=== PATIENT | male | born 1940 | race Caucasian/White ===

== ENCOUNTER 2020-06-02 08:00 | Day surgery (SDC) | payer MEDICARE ==
[2020-06-01 11:44] VITALS: BMI 30.4
[2020-06-02 08:40] LABS: Hemoglobin 13.7 g/dL (14.0-18.0)
[2020-06-02] MEDS ORDERED: AFRIN NASAL MIST 15 ML BOT ONE ×2 (08:42→08:55)
[2020-06-02] MEDS ORDERED: Lidocaine 1% w/Epinephrine 1:100K 20 ML VIAL ONE (08:55)
[2020-06-02] MEDS ORDERED: Ondansetron PF 4 MG/2 ML Vial ONE ×2 (08:56→13:18)
[2020-06-02] MEDS ORDERED: Dexamethasone 20 MG/5 ML VIAL ONE (08:56)
[2020-06-02] MEDS ORDERED: PROPOFOL 200 MG/20 ML VIAL ONE (08:56)
[2020-06-02] MEDS ORDERED: Lidocaine 1% PF 5 ML VIAL ONE (08:56)
[2020-06-02] MEDS ORDERED: Fentanyl 100 MCG/2 ML VIAL ONE ×2 (08:58→10:51)
[2020-06-02 09:03] LABS: Anion Gap 15 mmol/L (10-20); BUN (Urea Nitrogen) 27 mg/dL (8.4-25.7); Calc. Creatinine Clearance 76 mL/min (70-130); Calcium 9.3 mg/dL (7.8-10.44); Carbon Dioxide 25 mmol/L (23-31); Chloride 106 mmol/L (98-107); Estimated GFR-MDRD 69; Glucose 93 mg/dL (83-110); Sodium 141 mmol/L (136-145)
[2020-06-02] MEDS ORDERED: Promethazine HCl 25 MG/ML VIAL ONE (11:06)
[2020-06-02] MEDS ORDERED: Ondansetron ODT 4 MG TAB ONE (13:18)
--- NOTE | 2020-06-02 21:10 | EKG ---
Test Reason : PREOP Blood Pressure : / mmHG Vent. Rate : 056 BPM Atrial Rate : 056 BPM P-R Int : 202 ms QRS Dur : 132 ms QT Int : 454 ms P-R-T Axes : -18 -53 004 degrees QTc Int : 438 ms Sinus bradycardia Left axis deviation Non-specific intra-ventricular conduction block Inferior infarct , age undetermined Abnormal ECG Confirmed by Osito OLIVEIRA ([id number]) on 06/02/2020 9:10:17 PM Referred By: MIRNA Confirmed By:Osito OLIVEIRA
--- NOTE | 2020-06-03 00:12 | OP ---
DATE OF PROCEDURE: 06/02/2020 PREOPERATIVE DIAGNOSES: 1. Chronic rhinosinusitis. 2. Nasal septal deviation. 3. 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 POSTOPERATIVE DIAGNOSES: 1. Chronic rhinosinusitis. 2. Nasal septal deviation. 3. 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 PROCEDURES PERFORMED: 1. Bilateral endoscopic sinus surgery, total ethmoidectomies. 2. Bilateral endoscopic sinus surgery, maxillary sinus antrostomies. 3. Nasal septoplasty. 4. Bilateral inferior turbinate submucosal resection. 5. Bilateral repair of lateral nasal wall. ANESTHESIA: GETA. ESTIMATED BLOOD LOSS: 20 mL. COMPLICATIONS: None. DESCRIPTION OF PROCEDURE: NASAL SEPTOPLASTY AND BILATERAL INFERIOR TURBINATE SUBMUCOSAL RESECTION: The patient was taken to the operating room and placed supine on the table. General endotracheal anesthesia was obtained by the anesthesia staff. Then 1% lidocaine with 1:100,000 epinephrine was injected into the nasal septum as well as the inferior turbinates. The patient was prepped and draped in standard surgical fashion. The Afrin pledgets were then removed. A [place] incision was made on the left nasal septum. Submucoperichondrial dissection was performed bilaterally of the deviated portions of the septum, which included the maxillary crest and the crest deviation, as well as the mid portion of the septum. Cartilage and bony deviation were removed, leaving a generous caudal and dorsal strut. Any straight pieces of cartilage were then placed within the cartilage press, pressed, straightened, and then placed between the mucoperichondrial flaps, which were then closed using a 4-0 gut stitch. The inferior turbinates were then punctured with the submucosal Coblation machine, and 3 separate coblations were delivered to the anterior inferior portion of the inferior turbinates. Following this, the nasal cavity was irrigated. All debris was removed. An orogastric tube was placed. Gastric contents and Cronin splints were then placed in the nasal cavity and sutured with a 3-0 silk stitch. Following this, a 0-degree endoscope was advanced into the middle meatus. The middle turbinates were gently medialized. The uncinate process was identified bilaterally. Following this, the ball-ended probe was used to anteriorly fracture the uncinate process bilaterally. Following this, the uncinate was removed using the 0-degree microdebrider, 40-degree microdebrider and up-biting [place] forceps bilaterally. Following this, the natural maxillary sinus ostia was identified and was widened using the ball-ended probe. Following this, the maxillary ostia was then further widened using the 0-degree microdebrider and straight [place] forceps bilaterally. Following this, ethmoidal bulla was identified and was punctured on its medial and inferior aspect using the microdebrider bilaterally and then the ethmoidal bulla was then removed using microdebrider and up-biting [place] forceps bilaterally. Following this, the grand lamella was identified and was punctured into the posterior ethmoidal cells using a [place] tip suction bilaterally. Working from posterior to anterior, the ethmoidal cells were opened using the 0-degree microdebrider, 40-degree microdebrider and up-biting [place] forceps bilaterally. Following this, the nasal cavity was irrigated and nasal pore packing was placed within the middle meatus bilaterally. Following this, the lateral nasal wall collapse was identified using a [place] elevator and a small incision was made in a transcartilaginous approach to the nasal dorsum. Graft was placed overlying the nasal bones and supporting the lower lateral cartilages more caudally. This was performed bilaterally. Incision was closed using a 5-0 chromic gut stitch. The patient tolerated the procedure well. Cronin splints were placed and secured. Job ID: [id number]
== END 2020-06-02 13:40 | disposition home or self-care (01) ==
LOC: SDC 08:00
PROVIDERS: ATTEND Otolaryngology Plastic Surgery within the Head & Neck
PROC: 099R8ZZ Drainage of Left Maxillary Sinus, Via Natural or Artificial Opening Endoscopic (ICD-10-PCS; principal; 2020-06-02)
PROC: 099Q8ZZ Drainage of Right Maxillary Sinus, Via Natural or Artificial Opening Endoscopic (ICD-10-PCS; 2020-06-02)
PROC: 09BL8ZZ Excision of Nasal Turbinate, Via Natural or Artificial Opening Endoscopic (ICD-10-PCS; 2020-06-02)
PROC: 09BM8ZZ Excision of Nasal Septum, Via Natural or Artificial Opening Endoscopic (ICD-10-PCS; 2020-06-02)
DX: J32.4 Chronic pansinusitis (principal); J34.2 Deviated nasal septum; J34.3 Hypertrophy of nasal turbinates; J34.89 Other specified disorders of nose and nasal sinuses; J30.9 Allergic rhinitis, unspecified; I48.91 Unspecified atrial fibrillation; E03.9 Hypothyroidism, unspecified; M17.11 Unilateral primary osteoarthritis, right knee; Z79.899 Other long term (current) drug therapy
CPT/HCPCS: 36415; 80048; 85014; 85018; 93005; 93010; J1100; J2405; J2550; J2704; J3010; Q0162